=== PATIENT | female | born 1970 | race African-American/Black ===

== ENCOUNTER 2016-08-10 15:55 | Emergency (ER) | payer OTHER ==
[~2016-08-10] VITALS: Ht 152.4 cm; Wt 91.2 kg
[2016-08-10 16:00] VITALS: BP 126/84
[2016-08-10] MEDS ORDERED: cefTRIAXone SOD 1,000 MG VL IM ONE (17:00)
[2016-08-10] MEDS ORDERED: IBUPROFEN 800 MG TAB PO ONE (17:00)
[2016-08-10] MEDS ORDERED: TETANUS-DIPTH-ACEL PERTUSSIS 0.5ML SYRG IM ONE (17:15)
== END 2016-08-10 18:12 | disposition home or self-care (01) ==
LOC: ER 16:01
DX: S83.91XA Sprain of unspecified site of right knee, initial encounter (principal); Z23 Encounter for immunization; W01.0XXA Fall on same level from slipping, tripping and stumbling without subsequent striking against object, initial encounter; Y93.89 Activity, other specified; Y99.8 Other external cause status; Y92.091 Bathroom in other non-institutional residence as the place of occurrence of the external cause
CPT/HCPCS: 73564; 90471; 90715; 96372; 99284; J0696

== ENCOUNTER 2017-10-24 12:51 | Emergency (ER) | payer MEDICARE, OTHER ==
[~2017-10-24] VITALS: Ht 152.4 cm; Wt 72.1 kg
[2017-10-24 14:44] VITALS: BP 124/86
[2017-10-24 15:21] LABS: Basophils % (auto) 1.1 % (0.0-2.0); Eosinophils # (auto) 0.1 uL; Hemoglobin 14.6 g/dL (12.2-16.2); Lymphocytes # (auto) 1.2 uL; Monocytes # (auto) 0.4 uL; Neutrophils # (auto) 2.8 uL; Nucleated Red Blood Cells % 0.1 %; White Blood Cell 4.5 10^3/uL (4.4-10.8)
[2017-10-24 15:22] LABS: Basophils # (auto) 0.1 uL; Hematocrit 41.5 % (36.0-46.0); Lymphocytes % (auto) 26.5 % (10.0-50.0); Mean Corpuscular Hemoglobin 40.4 pg (28.0-32.0); Mean Corpuscular Hgb Conc. 35.1 g/dL (32.0-36.0); Monocytes % (auto) 7.9 % (0.0-12.0); Neutrophils % (auto) 62.5 % (37.0-80.0); Platelet Count (auto) 304 10^3/uL (140-450); Red Blood Cells 3.61 10^6/uL (4.0-5.20); Red Cell Distribution Width 16.2 % (11.8-14.3)
[2017-10-24] MEDS ORDERED: HYDROcodone-ACET 10/325MG TAB PO ONE (15:30)
[2017-10-24 15:32] LABS: INR 0.93 (0.9-1.15); Partial Thromboplastin Time 26.1 sec (23.78-33.04)
[2017-10-24 16:38] LABS: Anion Gap 9 (5-15); Blood Urea Nitrogen 6 mg/dL (7-18); Carbon Dioxide 26 mmol/L (21-32); Chloride 104 mmol/L (98-107); Glucose 97 mg/dL (74-106); Potassium 3.5 mmol/L (3.5-5.1); Sodium 139 mmol/L (136-145)
[2017-10-24 16:39] LABS: Alanine Aminotransferase 65 U/L (13-56); Albumin 2.3 g/dL (3.4-5.0); Alkaline Phosphatase 142 U/L (45-117); Aspartate Aminotransferase 69 U/L (15-37); BUN/Creatinine Ratio 11.3; Bilirubin, Total 0.7 mg/dL (0.2-1.0); Calcium 7.8 mg/dL (8.5-10.1); GFR African American 158 mL/min; GFR Non-African American 130 mL/min; Total Protein 5.6 g/dL (6.4-8.2)
== END 2017-10-24 16:32 | disposition home or self-care (01) ==
LOC: ER 12:57
DX: S42.352A Displaced comminuted fracture of shaft of humerus, left arm, initial encounter for closed fracture (principal); W01.0XXA Fall on same level from slipping, tripping and stumbling without subsequent striking against object, initial encounter; Y93.89 Activity, other specified; Y92.89 Other specified places as the place of occurrence of the external cause; Y99.8 Other external cause status
CPT/HCPCS: 36415; 71045; 73060; 73080; 73090; 80053; 84484; 85025; 85610; 85730